=== PATIENT | male | born 1940 | race Caucasian/White ===

== ENCOUNTER 2018-06-14 15:00 | Outpatient (CLI) | payer MEDICARE | END 2018-06-14 15:01 | disposition home or self-care (01) | LOC: SLEEPLAB 15:00 | PROVIDERS: ATTEND Family Medicine | DX: G47.33 Obstructive sleep apnea (adult) (pediatric) (principal); R53.83 Other fatigue; R06.83 Snoring; I10 Essential (primary) hypertension; G47.00 Insomnia, unspecified; E66.9 Obesity, unspecified; Z68.32 Body mass index [BMI] 32.0-32.9, adult | CPT/HCPCS: 95806 ==

== ENCOUNTER 2019-10-11 11:58 | Inpatient (IN) | payer MEDICARE, OTHER ==
[2019-10-11 12:47] LABS: Base Excess-Venous -0.6 mmol/L (-2.0 to 3.0); Bicarbonate (HCO3v) 22.5 mmol/L (22.0-28.0); CO2 Tension (PvCO2) 32.5 mmHg (40.0-50.0); Calcium, Ionized 1.21 mmol/L (See Comments:); Chloride 106 mmol/L (98-107); Hemoglobin - Calc 17.5 g/dL (14.0-18.0); Potassium 3.7 mmol/L (3.5-5.1); Sodium 141 mmol/L (138-145); T. Carbon Dioxide 23.5 mmol/L (22.0-28.0); vO2 Saturation-calc 72.2 % (60.0-85.0)
[2019-10-11 13:04] LABS: Bacteria/HPF None Seen HPF (None Seen); Bilirubin Negative (Negative); Blood, Urine Trace (Negative); Clarity Clear (Clear); Glucose, Urine (Dipstick) Normal (Negative); Ketone, Urine 20 mg/dL (Negative); Leukocyte Negative Leu/uL (Negative); Nitrite Negative (Negative); Protein, Urine (Dipstick) 30 mg/dL (Neg-Trace); RBC/HPF 0-3 HPF (0-3); Specific Gravity, Urine 1.025 (1.002-1.036); Squamous Epithelial 0-3 HPF (0-3); pH, Urine 5.5 (5.0-9.0)
[2019-10-11 13:06] LABS: #Eosinphils 0.1 thou/uL (0.0-0.7); #Lymphocytes 0.9 thou/uL (1.20-3.40); #Monocytes 1.3 thou/uL (0.11-0.59); #Neutrophils 10.2 thou/uL (1.40-6.50); %Basophils 0.1 % (0.0-1.0); %Eosinophils 0.4 % (0.0-10.0); %Lymphocytes 7.5 % (21.0-51.0); %Monocytes 10.3 % (0.0-10.0); %Neutrophils 81.7 % (42.0-75.0); Hemoglobin 17.5 g/dL (14.0-18.0); Mean Corpuscular HGB CONC 33.5 g/dL (32.0-36.0); Mean Corpuscular Hemoglobin 30.4 pg (27.0-31.0); Mean Corpuscular Volume 90.6 fL (78.0-98.0); Mean Platelet Volume 8.7 fL (7.4-10.4); Platelet Count 148 thou/uL (130-400); RBC Distribution Width 11.9 % (11.5-14.5); Red Blood Cell (RBC) Count 5.76 mill/uL (4.70-6.10); White Blood Cell (WBC) Count 12.4 thou/uL (4.8-10.8)
--- NOTE | 2019-10-11 13:13 | RAD ---
EXAM: Single view of the chest HISTORY: Dizziness and decreased oxygen saturation COMPARISON: 03/20/2018, 02/05/2010 FINDINGS: Single view of the chest shows a normal sized cardiomediastinal silhouette. Atheroscleroti c calcifications are seen in the aorta. Increased density is seen along the right paratracheal region in the apex which is stable compared to 2009. There is no evidence of consolidation, mass, or pleural effusion. Degenerative changes are seen in the spine. IMPRESSION: No evidence of acute cardiopulmonary disease
[2019-10-11 13:23] LABS: ALT (SGPT) 17 U/L (8-55); AST (SGOT) 16 U/L (5-34); Albumin 4.2 g/dL (3.4-4.8); Alkaline Phosphatase 79 U/L (40-110); Anion Gap 16 mmol/L (10-20); BUN (Urea Nitrogen) 16 mg/dL (8.4-25.7); Bilirubin, Total 1.9 mg/dL (0.2-1.2); Calc. Creatinine Clearance 0 mL/min (70-130); Carbon Dioxide 22 mmol/L (23-31); Chloride 105 mmol/L (98-107); Estimated GFR-MDRD 53; Glucose 122 mg/dL (83-110); Potassium 3.6 mmol/L (3.5-5.1); Protein, Total 7.2 g/dL (5.8-8.1); Sodium 139 mmol/L (136-145)
[2019-10-11 13:44] LABS: CKMB 1.2 ng/mL (0-6.6)
--- NOTE | 2019-10-11 14:21 | CT ---
CTA Angio Chest W WO Con 10/11/2019 1:16 PM Indication: 79-year-old male with dizziness Technique: Multiple CTA images were obtained of the thorax with IV contrast. 3-D rendering: MIP lucia nstructed images were created and reviewed. Comparison: No relevant prior studies available. Findings: Pulmonary arteries: There is extensive partially occlusive thrombus seen within the both main pulmon [place] arteries. There is largely partially occlusive thrombus seen within all segmental branches of the right middle lobe and right lower lobe. There is also partially occlusive thrombus seen within se gmental branches of the right upper lobe, left lower lobe, lingula and anterior left upper lobe. No pulmonary infarct is evident. Heart and Aorta: There are coronary artery and thoracic aortic calcifications. Mediastinum:There is a 2 cm calcified nodule in the inferior pole left thyroid lobe. No enlarged lymp h nodes are evident. Lungs:There is calcified granuloma within the right lower lobe. No consolidation, pleural effusion or pneumothorax is demonstrated. Pleural space: Clear. Upper Abdomen: There are multiple hypodensities within the liver, difficult to fully characterize du e to their size. The largest measures 9.5 mm within the left hepatic lobe on image 107 of series 2 and is consistent with a cyst. There is a lobulated mass involving the right adrenal gland measuring 3.7 cm. Left adrenal gland is normal-appearing. Osseous Structures: No acute osseous abnormality. Soft tissues:No abnormality. Other findings:None. Impression: 1. Extensive partially occlusive thrombus within the central and segmental pulmonary vessels of both lungs. There is no overt evidence to suggest right heart failure. No pulmonary infarct is grossly evident. Findings called to Darryl Trinidad RN for this patient at 2:15 PM on October 11, 2019. 2. Hypodensities within the liver and right adrenal mass are incompletely characterized. Follow-up CT the abdomen with and without contrast utilizing an adrenal mass protocol is recommended for additional characterization. 3. Calcified nodule inferior pole left thyroid lobe measuring 2 cm. Recommend nonemergent thyroid ult rasound follow-up for further characterization.
[2019-10-11] MEDS ORDERED: Enoxaparin Sodium 30 MG/0.3 ML SYRINGE ONE (14:49)
[2019-10-11] MEDS ORDERED: Enoxaparin Sodium 60 MG/0.6 ML SYRINGE ONE (14:49)
[2019-10-11 15:19] LABS: INR-International Normal Ratio 1.2; PTT 32.4 sec (22.9-36.1)
[2019-10-11 15:32] LABS: SARS-CoV-2 NAA Rapid Test Not Detected (NotDetected)
[2019-10-11] MEDS ORDERED: Guaifenesin DM 100-10/5 ML UDCUP PO PRN (16:24)
[2019-10-11] MEDS ORDERED: Calcium Carbonate 500 MG ChewTAB PO PRN (16:24)
[2019-10-11] MEDS ORDERED: HYDROcodone/Acetaminophen 5/325 mg Tablet PO PRN (16:24)
[2019-10-11] MEDS ORDERED: Senokot S 8.6-50 MG TAB PO PRN (16:24)
[2019-10-11] MEDS ORDERED: Bisacodyl 10 MG SUPP PR PRN (16:24)
[2019-10-11] MEDS ORDERED: Acetaminophen 325 MG TAB PO PRN (16:24)
[2019-10-11] MEDS ORDERED: Ondansetron PF 4 MG/2 ML Vial IVP PRN (16:24)
--- NOTE | 2019-10-11 16:47 | HP ---
REASON FOR ADMISSION: Pulmonary embolus. HISTORY OF PRESENTING ILLNESS: The patient gives history of his wrist watch saying that his saturations were low yesterday. It continued on until this morning. His noticed that he was short of breath. The patient has some mild pain in the right chest wall, which is off and on. It does not last more than a few seconds. This he noticed after coming to the ER. He has not had any subjective fever, cough, or expectoration. He states he sits for too long watching television. He also [place] and ambulates. No prior history of PE or DVT. No prior history of stress test for the heart or coronary artery disease in the past. PAST MEDICAL AND SURGICAL HISTORY: 1. Hypertension. 2. Dyslipidemia. 3. He has not had any prior surgeries. CURRENT MEDICATIONS: Takes: 1. Simvastatin 10 mg daily. 2. Lisinopril 20 mg daily. ALLERGIES: ALLERGIC TO LEVAQUIN. PERSONAL HISTORY: Drinks on social occasions. Does not abuse drugs. Quit smoking 3 years back. FAMILY HISTORY: Father at the age of 90 from natural causes. Mother in her 70s, was a heavy smoker. CODE STATUS: Full. Power of ip technology transactions attorney is his . REVIEW OF SYSTEMS: CONSTITUTIONAL: Negative for weight loss or gain, ability to conduct usual activities. SKIN: Negative for rash, itching. EYES: Negative for double vision, pain. ENT/MOUTH: Negative for nose bleeding, neck stiffness, pain, tenderness. CARDIOVASCULAR: Negative for palpitations, dyspnea on exertion, orthopnea. RESPIRATORY: Negative for wheezing, cough, hemoptysis, fever or night sweats. GASTROINTESTINAL: Negative for poor appetite, abdominal pain, heartburn, nausea , vomiting, constipation, or diarrhea. GENITOURINARY: Negative for urgency, frequency, dysuria, nocturia. MUSCULOSKELETAL: Negative for swelling. NEUROLOGIC/PSYCHIATRIC: Negative for anxiety, depression. ALLERGY/IMMUNOLOGIC: Negative for skin rash, bleeding tendency. PHYSICAL EXAMINATION: GENERAL: The patient is a 79-year-old male who is currently not in any acute distress. VITAL SIGNS: Blood pressure 130/80, pulse 110 per minute, respiratory rate 20 per minute, temperature 97.9 degrees Fahrenheit, saturating 96% on room air. NECK: Supple. No elevated JVP. EYES: Extraocular muscles intact. Pupils reacting to light. ORAL CAVITY: Mucous membranes are moist. No exudates or congestion. CARDIOVASCULAR SYSTEM: S1 and S2 heard. Regular rhythm. RESPIRATORY: Air entry 1+ bilateral. Scattered rhonchi plus no wheezes or rales. ABDOMEN: Soft. Bowel sounds heard. No tenderness, rigidity, or guarding. EXTREMITIES: No peripheral edema or calf tenderness. VASCULAR SYSTEM: Peripheral pulses 1+ bilateral. No ischemic ulcerations or gangrene. CENTRAL NERVOUS SYSTEM: No gross focal motor deficits noted. The patient is alert, awake, and oriented well. PSYCHIATRIC SYSTEM: The patient's mood is euthymic. No hallucinations or delusions. LABORATORY DATA: White count of 12, hemoglobin and hematocrit 17 and 52, platelet count is 148, MCV is 90 with 81% neutrophils, and lymphocytes are 7.5%. PT is 15, INR 1.2, and D-dimer greater than 20. Electrolytes stable. Serum bicarb 22 BUN is 16, creatinine 1.3, serum glucose 122, total bilirubin 1.9, AST and ALT of 16 and 17, and alkaline phosphatase is 79. Troponin-I 0.09 and BNP 133. Albumin is 4.2. COVID-19 PCR done in the ER is negative. CT angio chest done shows extensive partially occlusive thrombus within the central and segmental pulmonary vessels of both lungs, no overt evidence to suggest right heart failure, no pulmonary infarct is seen, hypodensities within the liver and right adrenal mass are incompletely seen on the CAT scan. CLINICAL IMPRESSION AND PLAN: The patient will be admitted to Telemetry for acute pulmonary embolism, which appears to be massive. He is currently hemodynamically stable. He has received 90 mg of Lovenox in the ER and will continue 90 mg of Lovenox twice daily. He will also be on a small dose of aspirin. Pepcid 20 mg twice daily. The patient has had prior colonoscopy more than 5 years ago and has not had any abnormality including cancer detected on it. He has had prior history of bleeding from hemorrhoids, but has had surgery for the same and has not had any further bleeding after that. Echo with 2D Doppler for left ventricular function and to see RV strain. Lower extremity venous Doppler to rule out deep vein thrombosis. Likely, the patient's episode of pulmonary embolism is from his prolonged sitting and watching TV at home. His serum sugars of 122 and we will obtain A1c and acute hepatitis panel for elevated total bilirubin. He will be on DuoNebs q.6 h. We will consult Dr. Dunham who is on-call for Pulmonology. Job ID: [id number] [facility] CENTERDiana
[2019-10-11 17:43] LABS: HBCM Index 0.06 S/CO (0-0.79); HBSAg Index 0.19 S/CO (0-0.99); Hep A IgM AB Non-Reactive (NonReactive); Hep A IgM S/CO 0.14 S/CO (0-0.79); Hep B Surf Ag Non-Reactive S/CO (NonReactive); Hep C IgG Ab Non-Reactive (NonReactive); Hep C Index 0.05 S/CO (0-0.79); Hepatitis B Core IgM Abs Non-Reactive (NonReactive)
[2019-10-11 17:53] VITALS: BMI 30.6
[2019-10-11] MEDS: Enoxaparin Sodium 100 MG/ML SYRINGE SC SCH (20:15)
[2019-10-11] MEDS: Famotidine 20 MG TAB PO SCH (20:15)
[2019-10-12 05:18] LABS: Hemoglobin A1c 5.6 % (4.0-6.0)
[2019-10-12 05:28] LABS: #Eosinphils 0.2 thou/uL (0.0-0.7); #Lymphocytes 1.5 thou/uL (1.20-3.40); #Neutrophils 6.8 thou/uL (1.40-6.50); %Basophils 0.1 % (0.0-1.0); %Eosinophils 1.6 % (0.0-10.0); %Lymphocytes 15.5 % (21.0-51.0); %Monocytes 10.2 % (0.0-10.0); %Neutrophils 72.6 % (42.0-75.0); Hemoglobin 15.6 g/dL (14.0-18.0); Mean Corpuscular HGB CONC 34.6 g/dL (32.0-36.0); Mean Corpuscular Hemoglobin 30.9 pg (27.0-31.0); Mean Corpuscular Volume 89.4 fL (78.0-98.0); Platelet Count 140 thou/uL (130-400); RBC Distribution Width 11.9 % (11.5-14.5); Red Blood Cell (RBC) Count 5.04 mill/uL (4.70-6.10); White Blood Cell (WBC) Count 9.4 thou/uL (4.8-10.8)
[2019-10-12 05:32] LABS: Anion Gap 13 mmol/L (10-20); BUN (Urea Nitrogen) 17 mg/dL (8.4-25.7); Calc. Creatinine Clearance 74 mL/min (70-130); Calcium 8.9 mg/dL (7.8-10.44); Carbon Dioxide 21 mmol/L (23-31); Chloride 107 mmol/L (98-107); Estimated GFR-MDRD 65; Glucose 114 mg/dL (83-110); Potassium 3.3 mmol/L (3.5-5.1); Sodium 138 mmol/L (136-145)
--- NOTE | 2019-10-12 09:18 | ULT ---
BILATERAL LOWER EXTREMITY VENOUS DOPPLER: Date: 10/11/2019 PROVIDED CLINICAL HISTORY: Pulmonary embolus. FINDINGS: Calvo scale and color Doppler sonography with spectral analysis performed of the bilateral common femo ral, femoral, popliteal, posterior tibial, greater saphenous, and profunda femoral veins. There is no ncompressibility and luminal echogenicity involving the left femoral vein, extending into the poplite al and posterior tibial veins. The remainder of the interrogated venous structures of the lower extre mities demonstrate a normal sonographic appearance. IMPRESSION: Positive for deep venous thrombosis involving the left femoral, popliteal, and posterior tibial veins . POS: LIYAH
[2019-10-12] MEDS: Enoxaparin Sodium 100 MG/ML SYRINGE SC SCH ×2 (09:34→20:28)
[2019-10-12] MEDS: Famotidine 20 MG TAB PO SCH ×2 (09:34→20:29)
[2019-10-12] MEDS: Aspirin Chewable 81 MG TAB PO SCH (09:34)
--- NOTE | 2019-10-12 10:56 | PDOC.HOSPP ---
- Subjective Encounter Date: 10/12/19 Encounter Time: 10:00 Subjective: sob is better, no chest pain or palpitations is ambulating in room ate his dinner last night - Objective Vital Signs & Weight: Vital Signs (12 hours) Temp Pulse Resp BP Pulse Ox 10/12/19 08:00 98.0 F 101 H 19 131/72 93 L 10/12/19 07:24 104 H 16 10/12/19 03:10 98.7 F 117 H 20 131/70 94 L 10/11/19 23:29 99 F 111 H 18 116/86 94 L Weight Weight 207 lb 3 oz I&O: 10/11/19 10/12/19 10/13/19 06:59 06:59 06:59 Intake Total 220 Balance 220 Result Diagrams: 10/12/19 04:49 10/12/19 04:49 Hospitalist ROS - Medication Medications: Active Medications Generic Name Dose Route Start Last Admin Trade Name Freq PRN Reason Stop Dose Admin Albuterol/Ipratropium 3 ml 10/11/19 19:00 10/12/19 07:24 Duoneb NEB 3 ml [id number] ELIZABETH Administration Aspirin 81 mg 10/12/19 09:00 10/12/19 09:34 Aspirin Chewable PO 81 mg DAILY ELIZABETH Administration Enoxaparin Sodium 90 mg 10/11/19 21:00 10/12/19 09:34 Lovenox SC 90 mg 0900,2100 ELIZABETH Administration Famotidine 20 mg 10/11/19 21:00 10/12/19 09:34 Pepcid PO 20 mg BID ELIZABETH Administration - Exam General Appearance: NAD, awake alert Eye: PERRL, anicteric sclera ENT: no oropharyngeal lesions, moist mucosa Neck: supple, no JVD Heart: RRR, no murmur Heart - other findings: tachycardic Respiratory: no wheezes, no rales, rhonchi Gastrointestinal: soft, non-tender, non-distended, normal bowel sounds Extremities: no cyanosis, no edema Neurological: cranial nerve grossly intact, no focal deficits Psychiatric: normal affect, A&O x 3 Hosp A/P (1) Pulmonary embolism Code(s): I26.99 - OTHER PULMONARY EMBOLISM WITHOUT ACUTE COR PULMONALE Status : Acute Qualifiers: Pulmonary embolism type: multiple subsegmental (without acute cor pulmonale) Qualified Code(s): I26.94 - Multiple subsegmental pulmonary emboli without acute cor pulmonale (2) DVT (deep venous thrombosis) Code(s): I82.409 - ACUTE EMBOLISM AND THOMBOS UNSP DEEP VN UNSP LOWER EXTREMITY Status: Acute Qualifiers: DVT location: lower extremity Chronicity: acute Laterality: left (3) HTN (hypertension) Code(s): I10 - ESSENTIAL (PRIMARY) HYPERTENSION Status: Chronic Qualifiers: Hypertension type: essential hypertension Qualified Code(s): I10 - Essential (primary) hypertension (4) Obesity (BMI 30.0-34.9) Code(s): E66.9 - OBESITY, UNSPECIFIED Status: Chronic - Plan is on lovenox 90mg sc q12h oral agent in am will see him continue home dose of lisinopril/hctz hemostable echo to ambulate in hallway as tolerated
--- NOTE | 2019-10-12 19:15 | CON ---
DATE OF CONSULTATION: HISTORY OF PRESENT ILLNESS: Mervin Renee is a morbidly obese, gentleman, 94 kg, who comes into the ER last night with symptoms of low oxygen saturation. Apparently, his has an O2 saturation monitor. It is unclear why she is doing that, but his saturations are low in the 80s, though he said he was asymptomatic. No cough. No wheezing or chest pain. His chest x-ray was normal, but CT chest angio was done, which shows significant bilateral pulmonary emboli. He has a diagnosis of sleep apnea, done several years ago, but never went back for a CPAP titration. His findings are consistent with severe ISABEL. PAST MEDICAL HISTORY: Hypertension. He says mild high cholesterol. PREVIOUS SURGERIES: Apparently none. He states he has been very active until recently, has a little bit more of a sedentary lifestyle. HOME MEDICATION: Includes lisinopril. ALLERGIES: LEVAQUIN. FAMILY HISTORY: Unremarkable. REVIEW OF SYSTEMS: Negative. PHYSICAL EXAMINATION: VITAL SIGNS: Temperature 98, pulse 101, respirations 97 on room air, blood pressure 130/72. EXTREMITIES: His left leg is somewhat swollen. CHEST: No wheezing, no crackles. CARDIAC: Sinus tach. ABDOMEN: Soft without masses. LABORATORY DATA: White count 9000, H and H 15 and 44, platelet count is normal. His lytes are normal. BUN was unremarkable. Hepatitis test was done, which was negative. He had a coronavirus test done, which was negative. ASSESSMENT: 1. Morbid obesity, sleep apnea, noncompliant. 2. Hypertension. 3. Bilateral pulmonary emboli. 4. Left leg deep venous thrombosis. 5. Completely abnormal CT abdomen suggesting hypodense area in the liver, adrenal mass. PLAN: 1. Repeat CT abdomen in the next day or two. 2. Continue Lovenox. 3. Echo is being ordered. 4. He needs to go back to the sleep study to get a CPAP titration. 5. A minimum 6 months of anticoagulation. We will discuss. Consultation note, 70 minutes, 50% direct patient care. Job ID: [id number]
[2019-10-12 21:59] LABS: Lactic Acid 1.4 mmol/L (0.5-2.2)
[2019-10-12 22:02] LABS: Anion Gap 17 mmol/L (10-20); BUN (Urea Nitrogen) 17 mg/dL (8.4-25.7); Calc. Creatinine Clearance 66 mL/min (70-130); Carbon Dioxide 20 mmol/L (23-31); Chloride 105 mmol/L (98-107); Estimated GFR-MDRD 57; Glucose 117 mg/dL (83-110); Potassium 3.5 mmol/L (3.5-5.1); Sodium 138 mmol/L (136-145)
[2019-10-13] MEDS: Famotidine 20 MG TAB PO SCH ×2 (09:14→20:05)
[2019-10-13] MEDS: Enoxaparin Sodium 100 MG/ML SYRINGE SC SCH ×2 (09:14→20:05)
[2019-10-13] MEDS: Lisinopril/Hydrochlorothiazide 20 mg/12.5 mg Tablet PO SCH (09:14)
[2019-10-13] MEDS: Aspirin Chewable 81 MG TAB PO SCH (09:14)
--- NOTE | 2019-10-13 11:09 | PDOC.HOSPP ---
- Subjective Encounter Date: 10/13/19 Encounter Time: 10:30 Subjective: no sob or palp or chest pain feels better - Objective Vital Signs & Weight: Vital Signs (12 hours) Temp Pulse Resp BP BP BP Pulse Ox 10/13/19 09:14 93 125/85 10/13/19 07:37 98.1 F 93 16 125/85 92 L 10/13/19 07:20 92 L 10/13/19 06:52 101 H 17 10/13/19 03:44 98.4 F 94 16 111/59 L 98 10/13/19 00:27 97.9 F 106 H 16 117/87 94 L Weight Admit Weight 207 lb 2.88 oz Weight 207 lb 2.88 oz I&O: 10/12/19 10/13/19 10/14/19 06:59 06:59 06:59 Intake Total 220 300 Balance 220 300 Result Diagrams: 10/12/19 04:49 10/12/19 21:33 Additional Labs: Accuchecks 10/12/19 21:21 POC Glucose 122 H Hospitalist ROS - Medication Medications: Active Medications Generic Name Dose Route Start Last Admin Trade Name Freq PRN Reason Stop Dose Admin Albuterol/Ipratropium 3 ml 10/11/19 19:00 10/13/19 06:52 Duoneb NEB 3 ml [id number] ELIZABETH Administration Aspirin 81 mg 10/12/19 09:00 10/13/19 09:14 Aspirin Chewable PO 81 mg DAILY ELIZABETH Administration Enoxaparin Sodium 90 mg 10/11/19 21:00 10/13/19 09:14 Lovenox SC 90 mg 0900,2100 ELIZABETH Administration Famotidine 20 mg 10/11/19 21:00 10/13/19 09:14 Pepcid PO 20 mg BID ELIZABETH Administration Lisinopril/HCTZ 1 tab 10/13/19 09:00 10/13/19 09:14 Prinizide 20-12.5 PO 1 tab DAILY ELIZABETH Administration Sodium Chloride 10 ml 10/12/19 21:00 10/13/19 09:14 Flush - Normal Saline IVF 10 ml Q12HR ELIZABETH Administration - Exam General Appearance: awake alert Eye: PERRL, anicteric sclera ENT: no oropharyngeal lesions, moist mucosa Neck: supple, no JVD Heart: RRR, no murmur Respiratory: no wheezes, no rales Gastrointestinal: soft, non-tender, non-distended, normal bowel sounds Extremities: no cyanosis, no edema Neurological: cranial nerve grossly intact, no focal deficits Psychiatric: A&O x 3 Hosp A/P (1) Pulmonary embolism Code(s): I26.99 - OTHER PULMONARY EMBOLISM WITHOUT ACUTE COR PULMONALE Status : Acute Qualifiers: Pulmonary embolism type: multiple subsegmental (without acute cor pulmonale) Qualified Code(s): I26.94 - Multiple subsegmental pulmonary emboli without acute cor pulmonale (2) DVT (deep venous thrombosis) Code(s): I82.409 - ACUTE EMBOLISM AND THOMBOS UNSP DEEP VN UNSP LOWER EXTREMITY Status: Acute Qualifiers: DVT location: lower extremity Chronicity: acute Laterality: left (3) HTN (hypertension) Code(s): I10 - ESSENTIAL (PRIMARY) HYPERTENSION Status: Chronic Qualifiers: Hypertension type: essential hypertension Qualified Code(s): I10 - Essential (primary) hypertension (4) Obesity (BMI 30.0-34.9) Code(s): E66.9 - OBESITY, UNSPECIFIED Status: Chronic - Plan is on lovenox 90mg sc q12h oral agent after CT abd/pelvis results has evaluated him continue home dose of lisinopril/hctz hemostable echo shows right heart strain to ambulate in hallway as tolerated dc plan in am if stable
--- NOTE | 2019-10-13 12:09 | PRG ---
DATE OF SERVICE: 10/13/2019 SUBJECTIVE: This morning, his temperature is 98, pulse 93 saturations are better at 92% on room air No pain. No chest discomfort. Lytes are normal. Creatinine 1.23. OBJECTIVE: CHEST: No wheezing. No crackles. CARDIAC: Normal S1 and S2. No gallops. ABDOMEN: No masses. ASSESSMENT: Deep venous thrombosis, pulmonary emboli bilateral, abnormal CT abdomen. PLAN: Awaiting results of the CT. No further intervention is planned. May switch him over to Eliquis in the next day or 2. We will follow. Job ID: [id number]
--- NOTE | 2019-10-13 12:30 | CT ---
CT ABDOMEN WITH AND WITHOUT CONTRAST: Date: 10/13/2019 Postcontrast images were obtained in a portal venous phase and a delayed venous phase. Adrenal protoc ol was followed. INDICATION: Hypodensities in liver and a right adrenal mass were described on CT chest of 10/11/2019. FINDINGS: Review of the abdomen on noncontrast images reveal numerous low density foci in the liver. The larges t is in the left lobe measuring approximately 1.7 cm. These numerous lesions do not significantly adriana nge on postcontrast images and there is no evidence of enhancement. These foci are consistent with nu merous hepatic cysts. The right adrenal mass is again noted. This mass measures 3.5 cm craniocaudal. This mass shows hetero geneity with a cystic component arising from its inferior border. The solid component measures 35 Rossana nsfield on the noncontrast study. The density is recorded at 56 Hounsfield units on the portal venous phase and 65 on the delayed venous phase. The lack of washout and the overall increased densities wo uld indicate a suspicious lesion. A benign adenoma cannot be diagnosed based on these washout values and therefore neoplasm is not excluded. The left adrenal appears unremarkable. The kidneys are unremarkable. The visualized bowel loops are unremarkable. Aorta is normal caliber. No adenopathy or free fluid. Osseous structures unremarkable with degenerative spine changes seen. IMPRESSION: 1. Right adrenal mass measuring up to 3.5 cm. The densities and washout values are not consistent wi th benign adenoma and therefore neoplastic lesion is not excluded. 2. Numerous low density lesions in the liver are consistent with hepatic cysts. POS: AGW
[2019-10-14 08:21] VITALS: BP 143/80; TEMP 98.2
[2019-10-14] MEDS: Famotidine 20 MG TAB PO SCH (08:27)
[2019-10-14] MEDS: Lisinopril/Hydrochlorothiazide 20 mg/12.5 mg Tablet PO SCH (08:27)
[2019-10-14] MEDS: Enoxaparin Sodium 100 MG/ML SYRINGE SC SCH (08:27)
[2019-10-14] MEDS: Aspirin Chewable 81 MG TAB PO SCH (08:27)
[2019-10-14] MEDS ORDERED: Apixaban 5 MG TAB PO SCH ×2 (10:00→21:00)
--- NOTE | 2019-10-14 10:35 | PRG ---
DATE OF SERVICE: 10/14/2019 SUBJECTIVE: A 79-year-old morbidly obese gentleman, status post PE and DVT. This morning, he is doing better, less shortness of breath, less cough. He had a repeat CT abdomen, rule out abnormality noted on his previous CT. The right adrenal mass was seen as 3.5 cm. Multiple hepatic cysts were seen. These findings were discussed with the patient's family. OBJECTIVE: VITAL SIGNS: His temperature 98, pulse 93, blood pressure 140/80, saturations 90% room air, respiratory rate 18. CHEST: No wheezing, no crackles. CARDIAC: Normal S1, S2. ABDOMEN: No masses. ASSESSMENT: Deep venous thrombosis, pulmonary embolism, stable on Eliquis. Abnormal CT abdomen, right adrenal mass at 3.2 cm for unknown etiology. Normal echocardiogram, morbid obesity. PLAN: A minimum of 6 months of Eliquis. He needs further workup of his adrenal mass on outpatient basis. Job ID: [id number]
--- NOTE | 2019-10-14 15:35 | DIS ---
DATE OF ADMISSION: 10/11/2019 DATE OF DISCHARGE: 10/14/2019 DISCHARGE DISPOSITION: Home. PRIMARY DISCHARGE DIAGNOSES: Left lower extremity deep venous thrombosis, pulmonary embolus. SECONDARY DISCHARGE DIAGNOSES: Hypertension, obesity. PROCEDURES DONE DURING HOSPITALIZATION: Ultrasound venous Doppler of both lower extremities done was positive for DVT in the left femoral, popliteal, and posterior tibial veins. CT abdomen and pelvis with and without contrast done showed numerous low-density lesions in the liver consistent with hepatic cysts, right adrenal mass measuring up to 3.5 cm. The densities and washout values were not consistent with benign adenoma and therefore, neoplastic lesion could not be excluded. CT angio chest showed extensive partially-occlusive thrombus within the central and segmental pulmonary vessels of both lungs. No overt evidence to suggest right heart failure. No pulmonary infarct was seen. Echo with 2D Doppler showed an EF of 65% to 70% with diastolic dysfunction, findings suggestive of right ventricular volume overload. H and H 15 and 45, platelet count 140, MCV is 89, white count of 9.4. BUN 17, creatinine 1.23. HbA1c 5.6. BNP 133. Troponin I was 0.09 on admission. CK-MB 1.2. COVID-19 PCR was not detected on 10/11/2019. Acute hepatitis panel was negative. DISCHARGE MEDICATIONS: 1. Eliquis 5 mg p.o. twice daily. 2. Lisinopril with hydrochlorothiazide 20/12.5 mg daily. ALLERGIES: ALLERGIC TO LEVAQUIN. DISCHARGE PLAN: The patient to follow up with Dr. Dunham in 3 to 4 weeks. His primary care physician, Antony Jaquez, in 1 week. He will need outpatient workup for the right adrenal mass via primary care physician. BRIEF COURSE DURING HOSPITALIZATION: The patient initially came to ER with complaints of shortness of breath and tachypnea at home. On arrival, the patient has had CT angio chest done, which showed extensive pulmonary embolus. Ultrasound venous Doppler done showed left lower extremity DVT. The patient is active in life, but usually sits for long hours to watch television. Likely, the cause for his DVT and PE at present. CT angio done on admission showed hypodensities in the liver and adrenal gland. In view of this, a CT of the abdomen and pelvis with contrast was obtained. His liver hypodensities are known to be cysts. The patient's right adrenal mass measured 3.5 cm and the densities were not consistent with benign adenoma. A neoplastic lesion could not be excluded. He will need outpatient workup for the same via primary care physician for the adrenal mass. Please note, I have seen and examined the patient on the day of discharge. I have given complete updates to the patient and his at bedside. He has been advised to be active on discharge. He is also counseled with regard to medication compliance with Eliquis and the precautions he needs to take while being on Eliquis. The patient was given education regarding the same. Please note, I have seen and examined the patient on the day of discharge. Job ID: [id number]
== END 2019-10-14 11:15 | disposition home or self-care (01) | DRG 299 ==
LOC: ERS 11:58 → 2SE 16:04
PROVIDERS: ADMIT Internal Medicine; ATTEND Internal Medicine
DX: I82.432 Acute embolism and thrombosis of left popliteal vein (principal); I26.94 Multiple subsegmental thrombotic pulmonary emboli without acute cor pulmonale; I82.412 Acute embolism and thrombosis of left femoral vein; I82.442 Acute embolism and thrombosis of left tibial vein; Z20.828 Contact with and (suspected) exposure to other viral communicable diseases; D35.01 Benign neoplasm of right adrenal gland; E78.5 Hyperlipidemia, unspecified; E78.00 Pure hypercholesterolemia, unspecified; G47.33 Obstructive sleep apnea (adult) (pediatric); E66.01 Morbid (severe) obesity due to excess calories; I10 Essential (primary) hypertension; Z88.1 Allergy status to other antibiotic agents; Z79.899 Other long term (current) drug therapy; Z88.8 Allergy status to other drugs, medicaments and biological substances; Z68.30 Body mass index [BMI] 30.0-30.9, adult
CPT/HCPCS: 36415; 36416; 71045; 71275; 74170; 74178; 80048; 80053; 80074; 81003; 81015; 82140; 82330; 82553; 82803; 83036; 83605; 83735; 83880; 84484; 85025; 85379; 85610; 85730; 93005; 93306; 93970; 94640; 96360; 96372; J1650; J7620; U0002

== ENCOUNTER 2019-11-01 15:33 | Outpatient (CLI) | payer MEDICARE ==
--- NOTE | 2019-11-01 16:43 | ULT ---
EXAM: US Thyroid STANDARD PROVIDED CLINICAL HISTORY: Thyroid nodule. COMPARISON: CTA chest on 10/11/2019 FINDINGS: Right lobe of thyroid gland measures 4.9 cm x 2 cm x 1.9 cm with the left lobe measuring 5.1 cm x 1.8 cm x 1.9 cm. The thyroid isthmus is thickened measuring 0.8 cm. A 0.8 cm hypoechoic nodule is seen in the midportion right lobe of thyroid gland. A 2.2 cm peripherally calcified hypoechoic lesion is seen in the left lobe of thyroid gland. There is shadowing from the calcifications. No additional nodule is seen in either lobe of the thyroid gland. IMPRESSION: 1. TI RADS level 4 moderately suspicious nodule left lobe of the thyroid gland. Based on characterist ics and size of this nodule, fine-needle aspiration would be warranted. However, fine-needle aspiration would be unable to be performed secondary to the dense peripheral calcifications. As resul t, ENT consultation is recommended. 2. TI RADS level 4 markedly suspicious nodule right lobe of the thyroid gland. This nodule measures l ess than 1 cm, and based on size criteria, follow-up thyroid ultrasound is recommended in one year.
== END 2019-11-01 15:34 | disposition home or self-care (01) ==
LOC: BICULT 15:33
PROVIDERS: ATTEND Family Medicine
DX: E04.2 Nontoxic multinodular goiter (principal)
CPT/HCPCS: 76536

== ENCOUNTER 2019-11-20 13:50 | Outpatient (CLI) | payer MEDICARE ==
--- NOTE | 2019-11-20 16:15 | MRI ---
MRI ABDOMEN WITH AND WITHOUT IV CONTRAST: 11/20/19 HISTORY: Adrenal mass. FINDINGS: Correlation is made with the CT of 10/13/19. The 3.5 cm right adrenal mass demonstrates adrenal to spleen CSI ratio of 1.19 and an adrenal signal index of 12.2%. (A CSI ratio greater than or equal to 0.71 and a signal intensity index less than or equal to 16.55 is considered indeterminate). The CT scan of 10/13/19 demonstrated absolute washout of 65% and relative washout of 24.5% and a noncontrast attenuation value 33 Hounsfield units. All these findings indicate that this mass does not have features of a lipid rich or a lipid poor adenoma. Cysts in the left lobe of the liver are again seen. The spleen, pancreas, adrenal glands and kidneys are unremarkable. The left adrenal gland is normal. No free fluid or lymphadenopathy is seen in the abdomen. The aorta is of normal caliber. The bone mar row signal is normal. IMPRESSION: Indeterminate 3.5 cm right adrenal mass that does not have features of a lipid rich or a lipid poor a denoma. Possibility of malignancy/metastatic disease cannot be excluded. Further evaluation with PET scan would be helpful. POS: [facility]
== END 2019-11-20 13:51 | disposition home or self-care (01) ==
LOC: TBSIIMAG 13:50
PROVIDERS: ATTEND Urology
DX: E27.8 Other specified disorders of adrenal gland (principal)
CPT/HCPCS: 74183; 82565

== ENCOUNTER 2020-02-18 12:41 | Outpatient (CLI) | payer MEDICARE ==
--- NOTE | 2020-02-18 13:43 | NM ---
NUCLEAR MEDICINE VENTILATION/PERFUSION SCAN: (V/Q scan) DATE: 02/18/2020 HISTORY: 79-year-old male with DVT. Concern for PE. TECHNIQUE: Xenon-133 gas not administered because of COVID-19 pandemic and concern for contamination of ventilat ion equipment Technetium 99m-MAA dose: 6.1 mCi Technetium 99m-MAA was injected IV, and multiple perfusion scintigraphic images were obtained. FINDINGS: The distribution of MAA and xenon is homogeneous. There are no perfusion defects; no evidence of pulm onary thromboembolism. IMPRESSION: Normal.
--- NOTE | 2020-02-18 14:12 | RAD ---
EXAM: CHEST TWO VIEWS: 02/18/20 HISTORY: Dyspnea, correlate with nuclear medicine scan. COMPARISON: 03/20/18. FINDINGS: Heart size is normal. The lungs are clear. Atherosclerosis of the aorta. No confluent pneumonia, over t edema or pleural effusion. IMPRESSION: No significant acute intrathoracic disease. Stable from prior study. POS: [facility]
== END 2020-02-18 12:42 | disposition home or self-care (01) ==
LOC: NM 12:41
PROVIDERS: ATTEND Internal Medicine Pulmonary Disease
DX: J90 Pleural effusion, not elsewhere classified (principal)
CPT/HCPCS: 71046; 78451; A9540

== ENCOUNTER 2020-02-21 09:14 | Outpatient (CLI) | payer MEDICARE ==
[2020-02-21] MEDS ORDERED: Magnevist 469MG/ML 20 ML VIAL ONE (13:36)
--- NOTE | 2020-02-21 14:23 | MRI ---
MRI ABDOMEN WITH AND WITHOUT IV CONTRAST: 02/21/20 HISTORY: Follow-up right adrenal mass. FINDINGS: Comparison is made with the MRI of 11/20/[address] scan of 10/13/19. The imaging characteristics and size of the 3.5 cm right adrenal mass is stable. The findings indicat ed that the mass does not have features of lipid rich or lipid poor adenoma. The spleen, pancreas, le ft adrenal gland, kidneys and gallbladder are normal. Cysts in the liver are seen. No free fluid or lymphadenopathy is noted in the abdomen. The aorta is of normal caliber. The bone ma rrow signal is normal. IMPRESSION: Stable 3.5 cm right adrenal mass. POS: [facility]
== END 2020-02-21 09:15 | disposition home or self-care (01) ==
LOC: BICMRI 09:14
PROVIDERS: ATTEND Urology
DX: E27.8 Other specified disorders of adrenal gland (principal)
CPT/HCPCS: 74183; 82565; A9579

== ENCOUNTER 2020-07-17 11:56 | Outpatient (CLI) | payer MEDICARE | END 2020-07-17 11:57 | disposition home or self-care (01) | LOC: SCSMRI 11:56 | PROVIDERS: ATTEND Family Medicine | DX: G91.2 (Idiopathic) normal pressure hydrocephalus (principal); R26.9 Unspecified abnormalities of gait and mobility | CPT/HCPCS: 70551 ==

== ENCOUNTER 2020-09-23 12:50 | Outpatient (CLI) | payer MEDICARE ==
[~2020-09-23 12:50] MED LIST: Iopamidol-370 76% 500 ML 1 ML ONE
== END 2020-09-23 12:51 | disposition home or self-care (01) ==
LOC: BICCT 12:50
PROVIDERS: ATTEND Urology
DX: E27.8 Other specified disorders of adrenal gland (principal)
CPT/HCPCS: 74170; 82565; Q9967

== ENCOUNTER 2020-11-25 12:56 | Outpatient (CLI) | payer MEDICARE | END 2020-11-25 12:57 | disposition home or self-care (01) | LOC: BICULT 12:56 | PROVIDERS: ATTEND Student in an Organized Health Care Education/Training Program | DX: E04.1 Nontoxic single thyroid nodule (principal) | CPT/HCPCS: 76536 ==

== ENCOUNTER 2021-09-27 09:28 | Outpatient (CLI) | payer MEDICARE ==
[2021-09-27] MEDS ORDERED: Iopamidol-370 76% 500 ML 1 ML ONE (15:48)
== END 2021-09-27 09:29 | disposition home or self-care (01) ==
LOC: BICCT 09:28
PROVIDERS: ATTEND Urology
DX: E27.8 Other specified disorders of adrenal gland (principal)
CPT/HCPCS: 74170; 82565; Q9967

== ENCOUNTER 2022-09-26 14:25 | Outpatient (CLI) | payer MEDICARE ==
[~2022-09-26 14:25] MED LIST changes: -Iopamidol-370 76% 500 ML 1 ML ONE; +Iopamidol-370 76% 500 ML MDV (1 ML CHARGE) ONE
== END 2022-09-26 14:26 | disposition home or self-care (01) ==
LOC: BICCT 14:25
PROVIDERS: ATTEND Urology
DX: E27.8 Other specified disorders of adrenal gland (principal)
CPT/HCPCS: 74170; 82565; Q9967